=== PATIENT | male | born 1990 | race Caucasian/White ===

== ENCOUNTER → 2017-12-10 | Outpatient (CLI) | payer BC ==
--- NOTE | 2017-12-10 12:54 | Diagnostic Imaging Report ---
PROCEDURE: MRI left joint lower extremity without contrast. TECHNIQUE: Multiplanar, multisequence non contrast-enhanced MRI of the left lower extremity was accomplished. INDICATION: Injury. There are no prior studies available for comparison. There is no abnormal signal arising from the osseous structures to suggest bone edema or fracture. The talar dome is smooth and there is no evidence for osteochondritis dissecans. The STIR axial series does show that the attachment of the anterior talofibular ligament to the talus is somewhat indistinct. I suspect that the anterior talofibular ligament is partially torn. The other major ligaments and tendons are intact. There is no evidence for joint effusion. IMPRESSION: 1. There is no acute bony abnormality identified and there is no sign of osteochondritis dissecans. 2. The indistinct appearance of the attachment of the anterior talofibular ligament to the talus does suggest that the ligament is partially torn. 3, The other major ligaments and tendons are intact. Dictated by: Dictated on workstation # [id number]
== END ==
LOC: RAD 10:23
PROVIDERS: ATTEND Orthopaedic Surgery
DX: M25.372 Other instability, left ankle (principal); M77.9 Enthesopathy, unspecified; M21.42 Flat foot [pes planus] (acquired), left foot
CPT/HCPCS: 73721

== ENCOUNTER → 2020-03-28 | Outpatient (CLI) | payer BC | LOC: LABNPT 06:26 | PROVIDERS: ATTEND Nurse Practitioner Family | DX: Z20.828 Contact with and (suspected) exposure to other viral communicable diseases (principal) | CPT/HCPCS: 87635 ==